=== PATIENT | female | born 1960 | race Two or more races ===

== ENCOUNTER 2024-05-12 17:00 | Emergency (ER) | payer OTHER ==
[~2024-05-12] VITALS: Ht 167.6 cm; Wt 68.0 kg
[2024-05-12] MEDS ORDERED: METFORMIN HCL850 MG (17:20)
[2024-05-12] MEDS ORDERED: LOSARTAN-HCTZ1 EAC2 (17:21)
[2024-05-12] MEDS ORDERED: SYNTHROID137 MCG (17:21)
[2024-05-12] MEDS ORDERED: DILTIAZEM 24HR240 MG (17:21)
[2024-05-12] MEDS ORDERED: 0.9 % SODIUM CHLORIDE 1,000 ML IV SCH (18:00)
[2024-05-12 18:14] LABS: HEMATOCRIT 39.2 % (36.0-45.00); HEMOGLOBIN 13.3 g/dL (12.0-15.00); MEAN CELL VOLUME 89.4 fL (80.00-100.00); MEAN CORPUSCULAR HEMOGLOBIN 30.3 pg (27.00-32.0); MEAN CORPUSCULAR HGB CONC 33.9 g/dl (32.0-36.0); PLATELET COUNT 322 K/uL (150-450); RED BLOOD COUNT 4.38 M/uL (4.00-6.00); RED CELL DISTRIBUTION WIDTH 13.3 % (11.5-14.5)
[2024-05-12 18:34] LABS: CALCIUM 9.6 mg/dL (8.5-10.1); CREATININE SERUM 0.87 mg/dL (0.55-1.02); GFR 65.34; POTASSIUM 3.52 mEq/L (3.5-5.1)
[2024-05-12 20:08] LABS: PH,URINE 5.5 (5.0-8.0); URINE APPEARANCE Clear; URINE BACTERIA 13.8 uL (0.0-1933); URINE BILIRRUBIN Negative (NEGATIVE); URINE BLOOD Negative; URINE COLOR Yellow; URINE GLUCOSE Negative (NEGATIVE); URINE KETONE Negative (NEGATIVE); URINE LEUKOCYTE Negative; URINE NITRATE Negative; URINE PROTEIN Negative (NEGATIVE); URINE UROBILINOGEN 0.2 E.U./dl; URINE WBC 2.4 uL (0.0-23.2)
[2024-05-12 20:13] LABS: URINE CAST 0.15 uL (0.0-1.40); URINE EPITHELIAL CELLS 1.2 uL (0.0-38.8)
[2024-05-12] MEDS ORDERED: LOPERAMIDE HCL 2 MG CAPSULE PO ONE (22:45)
[2024-05-13] MEDS ORDERED: INTESTINEX680 M2 PO (01:37)
[2024-05-13] MEDS ORDERED: LEVSIN/SL0.125 MG SL (01:37)
== END 2024-05-13 01:46 ==
LOC: ER 17:02
PROVIDERS: Emergency Medicine
DX: R10.9 Unspecified abdominal pain (principal); I10 Essential (primary) hypertension; E03.8 Other specified hypothyroidism; E11.9 Type 2 diabetes mellitus without complications; Z79.84 Long term (current) use of oral hypoglycemic drugs; Z88.1 Allergy status to other antibiotic agents
CPT/HCPCS: 36415; 74177; 96365; 96366; 99284; J7030; Q9965